=== PATIENT | male | born 1995 | race Caucasian/White ===

== ENCOUNTER 2021-09-10 12:28 | Emergency (ER) | payer OTHER ==
--- NOTE | 2021-09-10 13:02 | XRAY Report ---
PROCEDURE: Chest 1 View X-Ray INDICATIONS: Chest Pain TECHNIQUE: One view of the chest was acquired. COMPARISON: None. FINDINGS: Surgical changes and devices: None. Lungs and pleura: No pleural effusions or pneumothorax. Lungs are clear. Mediastinum: Mediastinal contours appear normal. Heart size is normal. Bones and chest wall: No suspicious bony lesions. Overlying soft tissues appear unremarkable. IMPRESSION: 1. No acute cardiopulmonary disease. Reviewed by: Vinay Faulknre MD on 09/10/2021 1:00 PM [facility] Approved by: Vinay Faulkner MD on 09/10/2021 1:00 PM [facility] Station ID: [id number]
[2021-09-10 13:11] LABS: BASOPHILS % (AUTO) 0.5 %; EOSINOPHILS # (AUTO) 0.2 10^3/uL (0.0-0.7); EOSINOPHILS % (AUTO) 2.4 %; HCT - HEMATOCRIT 44.7 % (42.0-52.0); HGB - HEMOGLOBIN 15.7 g/dL (14.0-18.0); LYMPHOCYTES # (AUTO) 1.9 10^3/uL (1.5-3.5); LYMPHOCYTES % (AUTO) 22.7 %; MEAN CORPUSCULAR HEMOGLOBIN 33.3 pg (27.0-31.0); MEAN CORPUSCULAR HGB CONC 35.1 g/dL (32.0-36.0); MEAN CORPUSCULAR VOLUME 94.7 fL (80.0-94.0); MEAN PLATELET VOLUME 9.3 fL (7.4-11.4); MONOCYTES # (AUTO) 0.9 10^3/uL (0.0-1.0); MONOCYTES % (AUTO) 10.5 %; NEUTROPHILS # (AUTO) 5.3 10^3/uL (1.5-6.6); NEUTROPHILS % (AUTO) 63.5 %; PLT - PLATELET COUNT 326 10^3/uL (130-450); RED BLOOD COUNT 4.72 10^6/uL (4.70-6.10); RED CELL DISTRIBUTION WIDTH 11.7 % (12.0-15.0); WHITE BLOOD COUNT 8.3 x10^3/uL (4.8-10.8)
[2021-09-10 13:23] LABS: ALBUMIN 4.6 g/dL (3.2-5.5); ALBUMIN/GLOBULIN RATIO 1.4 (1.0-2.2); CALCIUM 9.8 mg/dL (8.5-10.3); CREATININE 0.8 mg/dL (0.6-1.2); POTASSIUM 3.8 mmol/L (3.5-5.0); TOTAL PROTEIN 7.8 g/dL (6.7-8.2)
[2021-09-10 13:41] VITALS: BP 137/83
--- NOTE | 2021-09-10 13:47 | ED Physician Documentation ---
History of Present Illness - Stated complaint Stated Complaint: CHEST PX/L ARM PX - Chief complaint Chief Complaint: Cardiac - History obtained from History obtained from: Patient - History of Present Illness Timing: Today Pain level max: 5 Pain level now: 3 - Additonal information Additional information: 26-year-old male states he has had intermittent chest pain for the past several weeks. He states the last for a few seconds to a few minutes at a time and feels like a sharp pain. Occasionally there will be a dull ache afterwards. He states it seems to be worse with drinking alcohol. Nothing seems to make it better. Currently asymptomatic. No fever. No chills. No shortness of breath. No wheezing. No nausea or vomiting. No sweating. No family history of young cardiac disease. Review of Systems Constitutional: denies: Fever, Chills GI: denies: Vomiting, Diarrhea Skin: denies: Rash Musculoskeletal: denies: Neck pain, Back pain Neurologic: denies: Headache PD PAST MEDICAL HISTORY - Past Medical History Past Medical History: Yes Cardiovascular: None Respiratory: None Neuro: None Endocrine/Autoimmune: None GI: None : None HEENT: None Psych: Depression Musculoskeletal: None Derm: None - Past Surgical History Past Surgical History: No - Present Medications Home Medications: Ambulatory Orders Medication Instructions Recorded Confirmed No Known Home Medications 09/10/21 09/10/21 - Allergies Allergies/Adverse Reactions: Allergies Allergy/AdvReac Type Severity Reaction Status Date / Time No Known Drug Allergies Allergy Verified 09/10/21 12:41 - Social History Does the pt smoke?: Yes Smoking Status: Current every day smoker Does the pt drink ETOH?: Yes ETOH Use: Beer, Liquor Does the pt have substance abuse?: Yes Substance Use and Type: Cocaine/Crack - Immunizations Immunizations are current?: No Immunizations: Other immun not current - POLST Patient has POLST: No PD ED PE NORMAL - Vitals Vital signs reviewed: Yes - General General: Alert and oriented X 3, No acute distress - HEENT HEENT: Moist mucous membranes - Neck Neck: Supple, no meningeal sign - Cardiac Cardiac: RRR - Respiratory Respiratory: No respiratory distress, Clear bilaterally - Abdomen Abdomen: Soft, Non tender, Non distended - Derm Derm: Warm and dry - Extremities Extremities: No edema, No calf tenderness / cord - Neuro Neuro: Alert and oriented X 3 Results - Vitals Vitals: Vital Signs - 24 hr 09/10/21 09/10/21 12:37 13:41 Temperature 36.0 C L Heart Rate 105 H 69 Respiratory 18 14 Rate Blood Pressure 148/93 H 137/83 H O2 Saturation 98 97 Oxygen O2 Source Room air - EKG (time done) 1243 Rate: Rate (enter#) (76) Rhythm: NSR Spreckels: Normal Intervals: Normal NM QRS: Normal Ischemia: Normal ST segments - Labs Labs: Laboratory Tests 09/10/21 09/10/21 09/10/21 13:02 13:02 13:02 WBC 8.3 RBC 4.72 Hgb 15.7 Hct 44.7 MCV 94.7 H MCH 33.3 H MCHC 35.1 RDW 11.7 L Plt Count 326 MPV 9.3 Neut # (Auto) 5.3 Lymph # (Auto) 1.9 [place] # (Auto) 0.9 Eos # (Auto) 0.2 Baso # (Auto) 0.0 Absolute Nucleated RBC 0.00 Nucleated RBC % 0.0 Sodium 137 Potassium 3.8 Chloride 99 L Carbon Dioxide 28 Anion Gap 10.0 BUN 10 Creatinine 0.8 Estimated GFR (MDRD) 115 Glucose 96 Calcium 9.8 Total Bilirubin 1.0 AST 24 ALT 21 Alkaline Phosphatase 71 Troponin I High Sens 2.4 Total Protein 7.8 Albumin 4.6 Globulin 3.2 Albumin/Globulin Ratio 1.4 Lipase 30 - Rads (name of study) cxr Radiology: Final report received, EMP read contemporaneously, See rad report (No acute abnormality) PD MEDICAL DECISION MAKING - ED course Complexity details: reviewed results, re-evaluated patient, considered differential, d/w patient ED course: 26-year-old male with intermittent sharp chest pain. Asymptomatic currently. Does not appear consistent with pulmonary emboli, pneumothorax. No evidence of aortic dissection. No evidence of acute coronary syndrome. Patient is asymptomatic here. Possible PVCs? We will have him follow-up with his PCP for further care. No arrhythmias on telemetry. Patient counseled regarding signs and symptoms for which I believe and urgent re-evaluation would be necessary. Patient with good understanding of and agreement to plan and is comfortable going home at this time This document was made in part using voice recognition software. While efforts are made to proofread this document, sound alike and grammatical errors may occur. Departure - Departure Disposition: Home, Self Care Clinical Impression: Atypical chest pain Condition: Good Instructions: ED Chest Pain Atypical Unkn Cause Follow-Up: your,doctor in 1 week [Other] Comments: Please contact [facility] to discuss with your primary care provider is. Return if you worsen. Your testing is normal today. Your doctor may want to place a heart monitor on you to see if you are having any irregular heartbeat causing your symptoms. Discharge Date/Time: 09/10/21 13:59
== END 2021-09-10 13:59 | disposition home or self-care (01) ==
LOC: ED 12:28
DX: R07.89 Other chest pain (principal); F17.200 Nicotine dependence, unspecified, uncomplicated
CPT/HCPCS: 36415; 80053; 83690; 84484; 85025; 93005; 99284

== ENCOUNTER 2022-08-20 17:22 | Outpatient (CLI) | payer OTHER ==
[2022-08-20 23:38] LABS: CHLAMYDIA TRACHOMATIS DNA NEGATIVE (NEGATIVE); NEISSERIA GONORRHOEAE DNA NEGATIVE (NEGATIVE)
== END 2022-08-20 23:59 | disposition home or self-care (01) ==
LOC: LAB 17:22
PROVIDERS: ATTEND Internal Medicine
DX: L29.3 Anogenital pruritus, unspecified (principal)
CPT/HCPCS: 87491; 87591; 87661

== ENCOUNTER 2023-07-02 15:43 | Outpatient (CLI) | payer OTHER ==
--- NOTE | 2023-07-02 18:41 | XRAY Report ---
PROCEDURE: Ribs 2 View RT INDICATIONS: CONTUSION OF THORAX TECHNIQUE: 4 views of the right ribs were acquired. COMPARISON: Chest radiograph dated 09/10/2021. FINDINGS: Surgical changes and devices: None. Bones and chest wall: There is a acute, nondisplaced fracture involving the posterior right 11th rib . No suspicious osseous lesions. Stable appearance of chronic posttraumatic changes of the right shou lder. Lungs and pleura: The visualized lung appears clear. No pleural effusions or pneumothorax are visib le. IMPRESSION: Acute, nondisplaced right posterior 11th rib fracture. No definite pneumothorax visualized in the mary ged portions of the right lung. Reviewed by: Tyler Carlisle MD on 07/02/2023 6:40 PM PST Approved by: Tyler Carlisle MD on 07/02/2023 6:40 PM PST Station ID: [id number]
--- NOTE | 2023-07-17 17:44 | XRAY Report ---
PROCEDURE: Lumbar Spine 2 View INDICATIONS: LUMBAGO TECHNIQUE: 3 views of the lumbar spine were acquired. COMPARISON: None. FINDINGS: Bones: 5 [id number] vertebrae are present. There is normal bony alignment. No acute vertebral body compression fractures. No suspicious bony lesions. No significant degenerative changes. Soft tissues: Overlying bowel gas pattern is normal. No suspicious soft tissue calcifications. IMPRESSION: Unremarkable echographic evaluation of the lumbar spine without evidence for acute or ch ronic compression deformities. No significant spondylitic changes. Reviewed by: Tyler Carlisle MD on 07/02/2023 4:01 PM PST Approved by: Tyler Carlisle MD on 07/02/2023 4:01 PM PST Station ID: [id number]
== END 2023-07-02 23:59 | disposition home or self-care (01) ==
LOC: DI.S 15:43
PROVIDERS: ATTEND Physician Assistant
DX: S22.31XA Fracture of one rib, right side, initial encounter for closed fracture (principal); M54.50 Low back pain, unspecified